=== PATIENT | female | born 1935 | race Caucasian/White ===

== ENCOUNTER 2023-02-23 14:20 | Observation (INO) | payer MEDICARE ==
[2023-02-23] MEDS ORDERED: Zofran 4 MG/2 ML VIAL IV ONE (14:40)
[2023-02-23] MEDS ORDERED: Sodium Chloride 0.9% 1000 ML 1,000 ML IV STA (14:40)
[2023-02-23] MEDS ORDERED: Sodium Chloride 0.9% 1000 ML 1,000 ML ONE (14:46)
[2023-02-23] MEDS ORDERED: Zofran 4 MG/2 ML VIAL ONE (14:46)
[2023-02-23 14:54] LABS: Absolute Neutrophil Ct (ANC) 2.64 x10^3/uL (1.4-6.9); BASOPHIL % 0.2 % (0.0-0.4); Basophil (Absolute #) 0.01 x10^3/uL (0-0.4); Eosinophil (Absolute #) 0 x10^3/uL (0-0.5); Hematocrit 40.6 % (35-47); Hemoglobin 14.7 g/dL (12.0-16.0); IMMATURE GRAN # 0.02 x10^3u/L (0.00-0.03); IMMATURE GRAN % 0.4 % (0.00-0.4); Lymphocyte (Absolute #) 1.34 x10^3/uL (1.0-4.6); Mean Cell Volume 84.8 fL (78-100); Mean Corpuscular Hemoglobin 30.7 pg (26-32); Mean Corpuscular Hgb Concent. 36.2 g/dL (32-36); Mean Platelet Volume 9.2 fL (7.5-11.0); Monocyte (Absolute #) 0.45 x10^3/uL (0.0-1.3); Monocytes % 10.1 % (0.0-12.0); Neutrophil % 59.3 % (36.0-66.0); Platelet Count 268 x10^3/uL (150-450); Red Blood Count 4.79 x10^6/uL (4.1-5.4); Red Cell Distribution Width 11.2 % (11.5-14.0); White Blood Count 4.5 x10^3/uL (4.0-10.5)
[2023-02-23 15:08] LABS: ALBUMIN 4.6 g/dL (3.5-5.0); ALKALINE PHOSPHATASE 91 U/L (38-126); AMYLASE 80 U/L (30-110); ANION GAP 17.5 MEQ/L (5-15); BLOOD UREA NITROGEN 12 mg/dL (7-17); CHLORIDE 89 mmol/L (98-107); Calcium 8.9 mg/dL (8.4-10.2); Carbon Dioxide 20 mmol/L (22-30); Creatinine 1 0.72 mg/dL (0.52-1.04); EST GLOMERULAR FILTRATION RATE > 60.0 ML/MIN; Glucose 140 mg/dL (74-106); LIPASE 123 U/L (23-300); Potassium 3.6 mmol/L (3.5-5.1); SGOT/AST 32 U/L (14-36); SGPT/ALT 23 U/L (0-35); SODIUM 123 mmol/L (137-145); Total Protein 7.8 g/dL (6.3-8.2)
--- NOTE | 2023-02-23 15:29 | XRAY ---
Indication: Nausea, vomiting, and cough. Comparison: None 2 view abdomen demonstrates nonspecific nonobstructed bowel gas pattern with minimal/mild scattered colonic fecal debris. Solid organs unremarkable. Osseous structures intact with osteopenia, mild/moderate multilevel degenerative spondylosis, and minimal double curvature thoracolumbar scoliosis. Incidental overlying monitoring leads. Single frontal chest inflated and clear. Heart not enlarged. Bony thorax intact with osteopenia and degenerative changes. Incidental overlying monitoring leads. Impression: Nonacute nonobstructed abdomen. Nonacute one view chest. Incidental chronic bony findings.
[2023-02-23 16:18] LABS: Appearance Clear (Clear); Bacteria None Seen /HPF (None Seen); Bilirubin Negative (Negative); Blood Negative (Negative); Epithelial Cells Rare /HPF (None Seen); Glucose, Urine Negative (Negative); Hyaline Casts NONE SEEN /LPF (0-2); Ketones 15 (Negative); Leukocyte Esterase Large (Negative); Nitrite Negative (Negative); Ph 6.5 (4.6-8.0); Protein,Urine Dip 30 (Negative); RBC 0-2 /HPF (0-5); WBC 51-100 /HPF (0-5)
[2023-02-23 16:20] LABS: ADD URINE CULTURE? YES (NO)
[2023-02-23] MEDS ORDERED: ROCEPHIN 1 Gm-D5w 50 ml Bag** 1 G/50 ML IVPB IV ONE (16:23)
[2023-02-23] MEDS ORDERED: ROCEPHIN 1 Gm-D5w 50 ml Bag** 1 G/50 ML IVPB IV STA (16:24)
--- NOTE | 2023-02-23 16:24 | ERPHSYRPT ---
- History of Present Illness Time Seen by Provider: 02/23/23 14:30 Patient Subjective Stated Complaint: C/O nausea today. Patient states she has been fighting off an illness for about a week. Denies any pain. States one epi sode of diarrhea this am with some "dry heaving". Denies any fever for the past several days but states she had one last week when the illness started. Triage Nursing Assessment: Patient brought back to ER in W/C. She was able to transfer self from chair to bed. She is alert and oriented. Hard of hearing. No active vomiting during assessment. JEFRY CUBA. Physician History: Patient is an 87-year-old white female who presents to the emergency room after being ill for a week. She suspected she might have COVID but did not do a home test. She complains of chills nausea vomiting cough she has been sick for a week she has had some dry heaves she has had some diarrhea. Timing/Duration: week(s) (1) Severity: severe Modifying Factors: Improves With: nothing Associated Symptoms: nausea, cough, loss of appetite, weakness Allergies/Adverse Reactions: No Known Drug Allergies Allergy (Verified 02/23/23 14:28) Home Medications: Amlodipine Besylate [Norvasc] 1 tab PO DAILY 02/23/23 [History] Hydrochlorothiazide 25 mg [hydroDIURIL 25 MG] 1 tab PO DAILY 02/23/23 [History] Potassium Chloride [Klor-Con M20] 1 tab PO BID 02/23/23 [History] Hx Tetanus, Diphtheria Vaccination/Date Given: Yes Hx Influenza Vaccination/Date Given: Yes Hx Pneumococcal Vaccination/Date Given: Yes Immunizations Up to Date: Yes Travel Risk - International Travel Have you traveled outside of the country in past 3 weeks: No - Coronavirus Screening Are you exhibiting any of the following symptoms?: Yes Symptoms: Fever, Vomiting/Diarrhea - Vaccine Status Have you recieved a Covid-19 vaccination: Yes Facility Supervisor: [employer] - Vaccination Dates Date of 2cond Vaccination (if applicable): ? - Review of Systems Constitutional: Weakness, No Fever, No Chills Eyes: No Symptoms Ears, Nose, & Throat: No Symptoms Respiratory: No Cough, No Dyspnea Cardiac: No Chest Pain, No Edema, No Syncope Abdominal/Gastrointestinal: Nausea, Vomiting, Diarrhea, No Abdominal Pain Genitourinary Symptoms: No Dysuria Musculoskeletal: No Back Pain, No Neck Pain Skin: No Rash Neurological: No Dizziness, No Focal Weakness, No Sensory Changes Psychological: No Symptoms Endocrine: No Symptoms All Other Systems: Reviewed and Negative - Past Medical History Pertinent Past Medical History: Yes Cardiac History: Hypertension - Past Surgical History Past Surgical History: Yes Female Surgical History: Hysterectomy - Social History Smoking Status: Never smoker Exposure to second hand smoke: No Drug Use: none - Nursing Vital Signs Nursing Vital Signs: Initial Vital Signs Temperature 97.7 F 02/23/23 14:21 Pulse Rate 93 H 02/23/23 14:21 Respiratory Rate 15 02/23/23 14:21 Blood Pressure 171/84 02/23/23 14:21 O2 Sat by Pulse Oximetry 97 02/23/23 14:21 Pain Scale Pain Intensity 0 - Physical Exam General Appearance: moderate distress, alert Eye Exam: PERRL/EOMI, eyes nml inspection Ears, Nose, Throat Exam: normal ENT inspection, TMs normal, pharynx normal, moist mucous membranes Neck Exam: normal inspection, non-tender, supple, full range of motion Respiratory Exam: normal breath sounds, lungs clear, No respiratory distress Cardiovascular Exam: regular rate/rhythm, normal heart sounds, normal peripheral pulses Gastrointestinal/Abdomen Exam: soft, normal bowel sounds, No tenderness, No mass Back Exam: normal inspection, normal range of motion, No CVA tenderness, No vertebral tenderness Extremity Exam: normal inspection, normal range of motion, pelvis stable Neurologic Exam: alert, oriented x 3, cooperative, normal mood/affect, nml ce rebellar function, nml station & gait, sensation nml, No motor deficits Skin Exam: normal color, warm, dry, No rash Lymphatic Exam: No adenopathy SpO2 Interpretation: normal SpO2: 98 O2 Delivery: Room Air - Course Nursing assessment & vital signs reviewed: Yes EKG Interpreted by Me: RATE (88), Sinus Rhythm, NORMAL AXIS, LAFB, Right Bundle Branch Block, NORMAL ST-T - Radiology Exams Chest X-ray Interpretation: Reviewed by me, Negative Abdomen X-ray Interpretation: Reviewed by me, Negative Ordered Tests: Active Orders 24 hr Category Date Time Status EKG-ER Only STAT Care 02/23/23 14:40 Active IV Insertion STAT Care 02/23/23 14:40 Active OBSTR/ACUTE ABDOMEN SERIES Stat Exams 02/23/23 14:41 Completed AMYLASE Stat Lab 02/23/23 14:45 Completed BLOOD CULTURE Stat Lab 02/23/23 15:35 Received CBC W DIFF Stat Lab 02/23/23 14:45 Completed CMP Stat Lab 02/23/23 14:45 Completed CULTURE,URINE Stat Lab 02/23/23 16:00 Received LIPASE Stat Lab 02/23/23 14:45 Completed Lactic Acid Stat Lab 02/23/23 14:40 Completed TROPONIN Q4H Lab 02/23/23 14:45 Completed TROPONIN Q4H Lab 02/23/23 18:45 Ordered TROPONIN Q4H Lab 02/23/23 22:45 Ordered UA W/RFX UR CULTURE Stat Lab 02/23/23 16:00 Completed Medication Summary Discontinued Medications Generic Name Dose Route Start Last Admin Trade Name Freq PRN Reason Stop Dose Admin Droperidol 1.25 mg 02/23/23 16:03 02/23/23 16:06 Droperidol 5 Mg/2 Ml Vial IV 02/23/23 16:04 1.25 mg STAT ONE Administration Droperidol Confirm 02/23/23 16:05 Droperidol 5 Mg/2 Ml Vial Administered 02/23/23 16:06 Dose 5 mg .ROUTE .STK-MED ONE Sodium Chloride 1,000 mls @ 999 mls/hr 02/23/23 14:40 02/23/23 15:56 Sodium Chloride 0.9% 1000 Ml IV 02/23/23 15:40 Infused .Q1H1M STA Infusion Sodium Chloride Confirm 02/23/23 14:46 Sodium Chloride 0.9% 1000 Ml Administered 02/23/23 14:47 Dose 1,000 mls @ ud .ROUTE .STK-MED ONE Ceftriaxone Sodium/Dextrose Confirm 02/23/23 16:23 Rocephin 1 Gm-D5w 50 Ml Bag Administered 02/23/23 16:24 Dose 1 g in 50 mls @ ud IV .STK-MED ONE Ceftriaxone Sodium/Dextrose 1 g in 50 mls @ 100 mls/hr 02/23/23 16:24 16:56 Rocephin 1 Gm-D5w 50 Ml Bag IV 02/23/23 16:53 Infused STAT STA Infusion Ondansetron HCl 4 mg 02/23/23 14:40 02/23/23 14:47 Ondansetron Hcl 4 Mg/2 Ml Vial IV 02/23/23 14:41 4 mg STAT ONE Administration Ondansetron HCl Confirm 02/23/23 14:46 Ondansetron Hcl 4 Mg/2 Ml Vial Administered 02/23/23 14:47 Dose 4 mg .ROUTE .[facility]-MED ONE Lab/Rad Data: Laboratory Result Diagrams 02/23/23 14:45 02/23/23 14:45 Laboratory Results 02/23/23 02/23/23 02/23/23 Range/Units 16:00 15:35 14:45 WBC (4.0-10.5) x10^3/uL RBC (4.1-5.4) x10^6/uL Hgb (12.0-16.0) g/dL Hct (35-47) % MCV (78-100) fL MCH (26-32) pg MCHC (32-36) g/dL RDW (11.5-14.0) % Plt Count (150-450) x10^3/uL MPV (7.5-11.0) fL Gran % (36.0-66.0) % Immature Gran % (Auto) (0.00-0.4) % Nucleat RBC Rel Count (0.00-0.1) % Eos # (Auto) (0-0.5) x10^3/uL Immature Gran # (Auto) (0.00-0.03) x10^3u/L Absolute Lymphs (auto) (1.0-4.6) x10^3/uL Absolute Monos (auto) (0.0-1.3) x10^3/uL Absolute Nucleated RBC (0.00-0.01) x10^3u/L Lymphocytes % (24.0-44.0) % Monocytes % (0.0-12.0) % Eosinophils % (0.00-5.0) % Basophils % (0.0-0.4) % Absolute Granulocytes (1.4-6.9) x10^3/uL Basophils # (0-0.4) x10^3/uL Sodium (137-145) mmol/L Potassium (3.5-5.1) mmol/L Chloride (98-107) mmol/L Carbon Dioxide (22-30) mmol/L Anion Gap (5-15) MEQ/L BUN (7-17) mg/dL Creatinine (0.52-1.04) mg/dL Estimated GFR ML/MIN Glucose (74-106) mg/dL Lactic Acid (0.4-2.0) Calcium (8.4-10.2) mg/dL Total Bilirubin (0.2-1.3) mg/dL AST (14-36) U/L ALT (0-35) U/L Alkaline Phosphatase (38-126) U/L Troponin I < 0.012 (0.000-0.034) ng/mL Serum Total Protein (6.3-8.2) g/dL Albumin (3.5-5.0) g/dL Amylase (30-110) U/L Lipase (23-300) U/L Urine Color Yellow (Yellow) Urine Appearance Clear (Clear) Urine pH 6.5 (4.6-8.0) Ur Specific [place] 1.010 (1.005-1.030) Urine Protein 30 (Negative) Urine Glucose (UA) Negative (Negative) mg/dL Urine Ketones 15 A (Negative) Urine Blood Negative (Negative) Urine Nitrite Negative (Negative) Urine Bilirubin Negative (Negative) Urine Urobilinogen 1.0 A (0.2) mg/dL Ur Leukocyte Esterase Large A (Negative) U Hyaline Cast (Auto) NONE SEEN (0-2) /LPF Urine Microscopic RBC 0-2 (0-5) /HPF Urine Microscopic WBC 51-100 A (0-5) /HPF Ur Epithelial Cells Rare (None Seen) /HPF Urine Bacteria None Seen (None Seen) /HPF Urine Culture Reflexed YES (NO) Influenza Type A Ag NEGATIVE (NEGATIVE) Influenza Type B Ag NEGATIVE (NEGATIVE) RSV (PCR) NEGATIVE (NEGATIVE) SARS-CoV-2 (PCR) POSITIVE A (NEGATIVE) 02/23/23 02/23/23 02/23/23 Range/Units 14:45 14:45 14:40 WBC 4.5 (4.0-10.5) x10^3/uL RBC 4.79 (4.1-5.4) x10^6/uL Hgb 14.7 (12.0-16.0) g/dL Hct 40.6 (35-47) % MCV 84.8 (78-100) fL MCH 30.7 (26-32) pg MCHC 36.2 H (32-36) g/dL RDW 11.2 L (11.5-14.0) % Plt Count 268 (150-450) x10^3/uL MPV 9.2 (7.5-11.0) fL Gran % 59.3 (36.0-66.0) % Immature Gran % (Auto) 0.4 (0.00-0.4) % Nucleat RBC Rel Count 0.0 (0.00-0.1) % Eos # (Auto) 0 (0-0.5) x10^3/uL Immature Gran # (Auto) 0.02 (0.00-0.03) x10^3u/L Absolute Lymphs (auto) 1.34 (1.0-4.6) x10^3/uL Absolute Monos (auto) 0.45 (0.0-1.3) x10^3/uL Absolute Nucleated RBC 0.00 (0.00-0.01) x10^3u/L Lymphocytes % 30.0 (24.0-44.0) % Monocytes % 10.1 (0.0-12.0) % Eosinophils % 0.0 (0.00-5.0) % Basophils % 0.2 (0.0-0.4) % Absolute Granulocytes 2.64 (1.4-6.9) x10^3/uL Basophils # 0.01 (0-0.4) x10^3/uL Sodium 123 L (137-145) mmol/L Potassium 3.6 (3.5-5.1) mmol/L Chloride 89 L (98-107) mmol/L Carbon Dioxide 20 L (22-30) mmol/L Anion Gap 17.5 H (5-15) MEQ/L BUN 12 (7-17) mg/dL Creatinine 0.72 (0.52-1.04) mg/dL Estimated GFR > 60.0 ML/MIN Glucose 140 H (74-106) mg/dL Lactic Acid 1.6 (0.4-2.0) Calcium 8.9 (8.4-10.2) mg/dL Total Bilirubin 0.70 (0.2-1.3) mg/dL AST 32 (14-36) U/L ALT 23 (0-35) U/L Alkaline Phosphatase 91 (38-126) U/L Troponin I (0.000-0.034) ng/mL Serum Total Protein 7.8 (6.3-8.2) g/dL Albumin 4.6 (3.5-5.0) g/dL Amylase 80 (30-110) U/L Lipase 123 (23-300) U/L Urine Color (Yellow) Urine Appearance (Clear) Urine pH (4.6-8.0) Ur Specific [place] (1.005-1.030) Urine Protein (Negative) Urine Glucose (UA) (Negative) mg/dL Urine Ketones (Negative) Urine Blood (Negative) Urine Nitrite (Negative) Urine Bilirubin (Negative) Urine Urobilinogen (0.2) mg/dL Ur Leukocyte Esterase (Negative) U Hyaline Cast (Auto) (0-2) /LPF Urine Microscopic RBC (0-5) /HPF Urine Microscopic WBC (0-5) /HPF Ur Epithelial Cells (None Seen) /HPF Urine Bacteria (None Seen) /HPF Urine Culture Reflexed (NO) Influenza Type A Ag (NEGATIVE) Influenza Type B Ag (NEGATIVE) RSV (PCR) (NEGATIVE) SARS-CoV-2 (PCR) (NEGATIVE) - Progress Progress: unchanged Medical Desision Making - Independent Historian Additional History obtained from: Child - Discussion of managment Care discussed with:: on-call "doc" Reviewed:: Test results Agreed on:: Treatment plan, decision to admit Will see patient: in hospital - Diagnostic Testing Diagnostic test were ordered, analyzed, and reviewed by me: Yes Radiological Interpretation: Reviewed by me - Risk of complications The pt has a mod risk of morbidity or mortality based on: Need for prescription drug management - Departure Departure Disposition: Observation (Patient admitted to the hospitalist service Dr. Locke) Clinical Impression: COVID, Hyponatremia, Urinary tract infection Condition: Serious Critical Care Time: No Referrals: JERRY OBRIEN [Primary Care Provider] - Follow up/PCP as directed
[2023-02-23 16:25] LABS: INFLUENZA A NEGATIVE (NEGATIVE); INFLUENZA B NEGATIVE (NEGATIVE); RESPIRATORY SYNCTIAL VIRUS NEGATIVE (NEGATIVE)
[2023-02-23 16:29] LABS: SARS-CoV-2 Xpert Express POSITIVE (NEGATIVE)
--- NOTE | 2023-02-23 18:14 | PCM.HP ---
History of Present Illness - Chief Complaint Date: 02/23/23 History of Present Illness: is a 87 year old female with a pmhx of HTN presenting with c/o fatigue, diarrhea (x 1 episode) and nausea. Patient reports that for about a week now she has been sick with flu-like symptoms including chills, nausea, vomiting, and dry cough. She denies any sick contacts but states she thought she had COVID based off her symptoms. In ER her vitals were mostly unremarkable with the exception of mild hypertension. She is at her baseline of RA with spo2 @ 98%. CT of the abdomen findings: Nonacute nonobstructed abdomen. Nonacute one view chest.Incidental chronic bony findings. Laboratory findings remarkable for sodium level of 123, chloride at 89, carbon dioxide at 20, Gap 17.5, u/a suspicious for infection, and positive COVID. In ER patient received a fluid bolus, ceftriaxone, zofran, and droperidol. - Review of Systems Constitutional: Fatigue, Weakness Eyes: No Symptoms Ears, Nose, & Throat: No Symptoms Respiratory: Cough, Short Of Breath Cardiac: No Symptoms Abdominal/Gastrointestinal: Nausea, Vomiting, Diarrhea Genitourinary Symptoms: No Symptoms Musculoskeletal: No Symptoms Skin: No Symptoms Neurological: No Symptoms Psychological: No Symptoms Medications & Allergies Home Medications: Home Medication List Amlodipine Besylate [Norvasc] 1 tab PO DAILY 02/23/23 [History Confirmed 02/23/23] Hydrochlorothiazide 25 mg [hydroDIURIL 25 MG] 1 tab PO DAILY 02/23/23 [History Confirmed 02/23/23] Potassium Chloride [Klor-Con M20] 1 tab PO BID 02/23/23 [History Confirmed 02/23/23] Allergies/Adverse Reactions: Allergies Allergy/AdvReac Type Severity Reaction Status Date / Time No Known Drug Allergies Allergy Verified 02/23/23 14:28 - Past Medical History Past Medical History: Yes Cardiac History: Hypertension - Past Surgical History Past Surgical History: Yes Female Surgical History: Hysterectomy - Social History Smoking Status: Never smoker Exposure to second hand smoke: No Alcohol: None Drug Use: none - Physical Exam Vital Signs: Vital Signs - 24 hr Temp Pulse Resp BP BP Pulse Ox 02/23/23 17:23 98 02/23/23 17:00 99 H 13 150/85 02/23/23 16:30 94 H 19 151/82 94 L 02/23/23 16:01 99 H 18 159/80 98 02/23/23 16:00 89 19 159/80 96 02/23/23 15:53 97.8 F 02/23/23 15:30 148/77 02/23/23 15:00 88 15 151/72 95 02/23/23 14:29 90 18 171/84 02/23/23 14:21 97.7 F 93 H 15 171/84 97 General Appearance: no apparent distress Neurologic Exam: alert, oriented x 3, cooperative Eye Exam: PERRL/EOMI Respiratory Exam: normal breath sounds, lungs clear Cardiovascular Exam: regular rate/rhythm, normal heart sounds Gastrointestinal/Abdomen Exam: soft, normal bowel sounds Pelvic Exam: not done Rectal Exam: not done Extremity Exam: normal inspection Skin Exam: pale Results - Labs Lab/Micro Results: Lab Results-Last 24 Hours 02/23/23 02/23/23 02/23/23 Range/Units 14:40 14:45 14:45 WBC 4.5 (4.0-10.5) x10^3/uL RBC 4.79 (4.1-5.4) x10^6/uL Hgb 14.7 (12.0-16.0) g/dL Hct 40.6 (35-47) % MCV 84.8 (78-100) fL MCH 30.7 (26-32) pg MCHC 36.2 H (32-36) g/dL RDW 11.2 L (11.5-14.0) % Plt Count 268 (150-450) x10^3/uL MPV 9.2 (7.5-11.0) fL Gran % 59.3 (36.0-66.0) % Immature Gran % (Auto) 0.4 (0.00-0.4) % Nucleat RBC Rel Count 0.0 (0.00-0.1) % Eos # (Auto) 0 (0-0.5) x10^3/uL Immature Gran # (Auto) 0.02 (0.00-0.03) x10^3u/L Absolute Lymphs (auto) 1.34 (1.0-4.6) x10^3/uL Absolute Monos (auto) 0.45 (0.0-1.3) x10^3/uL Absolute Nucleated RBC 0.00 (0.00-0.01) x10^3u/L Lymphocytes % 30.0 (24.0-44.0) % Monocytes % 10.1 (0.0-12.0) % Eosinophils % 0.0 (0.00-5.0) % Basophils % 0.2 (0.0-0.4) % Absolute Granulocytes 2.64 (1.4-6.9) x10^3/uL Basophils # 0.01 (0-0.4) x10^3/uL Sodium 123 L (137-145) mmol/L Potassium 3.6 (3.5-5.1) mmol/L Chloride 89 L (98-107) mmol/L Carbon Dioxide 20 L (22-30) mmol/L Anion Gap 17.5 H (5-15) MEQ/L BUN 12 (7-17) mg/dL Creatinine 0.72 (0.52-1.04) mg/dL Estimated GFR > 60.0 ML/MIN Glucose 140 H (74-106) mg/dL Lactic Acid 1.6 (0.4-2.0) Calcium 8.9 (8.4-10.2) mg/dL Total Bilirubin 0.70 (0.2-1.3) mg/dL AST 32 (14-36) U/L ALT 23 (0-35) U/L Alkaline Phosphatase 91 (38-126) U/L Troponin I (0.000-0.034) ng/mL Serum Total Protein 7.8 (6.3-8.2) g/dL Albumin 4.6 (3.5-5.0) g/dL Amylase 80 (30-110) U/L Lipase 123 (23-300) U/L Urine Color (Yellow) Urine Appearance (Clear) Urine pH (4.6-8.0) Ur Specific [place] (1.005-1.030) Urine Protein (Negative) Urine Glucose (UA) (Negative) mg/dL Urine Ketones (Negative) Urine Blood (Negative) Urine Nitrite (Negative) Urine Bilirubin (Negative) Urine Urobilinogen (0.2) mg/dL Ur Leukocyte Esterase (Negative) U Hyaline Cast (Auto) (0-2) /LPF Urine Microscopic RBC (0-5) /HPF Urine Microscopic WBC (0-5) /HPF Ur Epithelial Cells (None Seen) /HPF Urine Bacteria (None Seen) /HPF Urine Culture Reflexed (NO) Influenza Type A Ag (NEGATIVE) Influenza Type B Ag (NEGATIVE) RSV (PCR) (NEGATIVE) SARS-CoV-2 (PCR) (NEGATIVE) 02/23/23 02/23/23 02/23/23 Range/Units 14:45 15:35 16:00 WBC (4.0-10.5) x10^3/uL RBC (4.1-5.4) x10^6/uL Hgb (12.0-16.0) g/dL Hct (35-47) % MCV (78-100) fL MCH (26-32) pg MCHC (32-36) g/dL RDW (11.5-14.0) % Plt Count (150-450) x10^3/uL MPV (7.5-11.0) fL Gran % (36.0-66.0) % Immature Gran % (Auto) (0.00-0.4) % Nucleat RBC Rel Count (0.00-0.1) % Eos # (Auto) (0-0.5) x10^3/uL Immature Gran # (Auto) (0.00-0.03) x10^3u/L Absolute Lymphs (auto) (1.0-4.6) x10^3/uL Absolute Monos (auto) (0.0-1.3) x10^3/uL Absolute Nucleated RBC (0.00-0.01) x10^3u/L Lymphocytes % (24.0-44.0) % Monocytes % (0.0-12.0) % Eosinophils % (0.00-5.0) % Basophils % (0.0-0.4) % Absolute Granulocytes (1.4-6.9) x10^3/uL Basophils # (0-0.4) x10^3/uL Sodium (137-145) mmol/L Potassium (3.5-5.1) mmol/L Chloride (98-107) mmol/L Carbon Dioxide (22-30) mmol/L Anion Gap (5-15) MEQ/L BUN (7-17) mg/dL Creatinine (0.52-1.04) mg/dL Estimated GFR ML/MIN Glucose (74-106) mg/dL Lactic Acid (0.4-2.0) Calcium (8.4-10.2) mg/dL Total Bilirubin (0.2-1.3) mg/dL AST (14-36) U/L ALT (0-35) U/L Alkaline Phosphatase (38-126) U/L Troponin I < 0.012 (0.000-0.034) ng/mL Serum Total Protein (6.3-8.2) g/dL Albumin (3.5-5.0) g/dL Amylase (30-110) U/L Lipase (23-300) U/L Urine Color Yellow (Yellow) Urine Appearance Clear (Clear) Urine pH 6.5 (4.6-8.0) Ur Specific [place] 1.010 (1.005-1.030) Urine Protein 30 (Negative) Urine Glucose (UA) Negative (Negative) mg/dL Urine Ketones 15 A (Negative) Urine Blood Negative (Negative) Urine Nitrite Negative (Negative) Urine Bilirubin Negative (Negative) Urine Urobilinogen 1.0 A (0.2) mg/dL Ur Leukocyte Esterase Large A (Negative) U Hyaline Cast (Auto) NONE SEEN (0-2) /LPF Urine Microscopic RBC 0-2 (0-5) /HPF Urine Microscopic WBC 51-100 A (0-5) /HPF Ur Epithelial Cells Rare (None Seen) /HPF Urine Bacteria None Seen (None Seen) /HPF Urine Culture Reflexed YES (NO) Influenza Type A Ag NEGATIVE (NEGATIVE) Influenza Type B Ag NEGATIVE (NEGATIVE) RSV (PCR) NEGATIVE (NEGATIVE) SARS-CoV-2 (PCR) POSITIVE A (NEGATIVE) - Radiology Impressions Radiology Exams & Impressions: Radiology Procedures Category Date Time Status OBSTR/ACUTE ABDOMEN SERIES Stat Exams 02/23/23 14:41 Completed Assessment/Plan (1) COVID Current Visit: Yes Status: Acute Assessment & Plan: -Continue to monitor, passed the window for paxlovid/remdesivir -CXR pending -Isolation -Supplemental oxygen as need for goal of >92% Code(s): U07.1 - COVID-19 (2) Hyponatremia Current Visit: Yes Status: Acute Assessment & Plan: -Most likely due to hypovolemia/use of hctz -Continue NS@100ml/hr -BMP q4h -TSH, lipid panel -Tele -Hold HCTZ Code(s): E87.1 - HYPO-OSMOLALITY AND HYPONATREMIA (3) Urinary tract infection Current Visit: Yes Status: Acute Assessment & Plan: -Rocephin empirically, follow culture Code(s): N39.0 - URINARY TRACT INFECTION, SITE NOT SPECIFIED (4) Hypertension Current Visit: Yes Status: Acute Assessment & Plan: -stable, will continue to monitor for now, resume amlodipine VTE: lovenox surrogate decision makers: Radha Srivastava [phone] Ghanshyam Srivastava [phone] Dispo: possible D/C tomorrow Code(s): I10 - ESSENTIAL (PRIMARY) HYPERTENSION
[2023-02-23] MEDS ORDERED: TYLENOL 325 MG PO PRN (18:21)
[2023-02-23] MEDS: Sodium Chloride 0.9% 1000 ML 1,000 ML IV SCH (18:29)
[2023-02-23] MEDS: Zofran 4 MG/2 ML VIAL IV PRN (20:17)
[2023-02-23] MEDS ORDERED: Klor Con PO ONE (21:41)
[2023-02-23] MEDS: Klor Con PO SCH (21:53)
[2023-02-23] MEDS ORDERED: NON-FORMULARY ITEM (Potassium Chloride [Klor-Con M20] 20 MEQ Tab.Er.Prt) PO SCH (22:00)
[2023-02-23 23:31] LABS: ANION GAP 15.8 MEQ/L (5-15); BLOOD UREA NITROGEN 9 mg/dL (7-17); CHLORIDE 93 mmol/L (98-107); Calcium 8.5 mg/dL (8.4-10.2); Carbon Dioxide 21 mmol/L (22-30); Cholesterol 178 mg/dL (50-200); Creatinine 1 0.72 mg/dL (0.52-1.04); EST GLOMERULAR FILTRATION RATE > 60.0 ML/MIN; Glucose 109 mg/dL (74-106); HDL CHOLESTEROL 36 mg/dL (40-60); LDL, DIRECT 119 mg/dL (30-100); Potassium 4.1 mmol/L (3.5-5.1); Risk Ratio 4.9; SODIUM 126 mmol/L (137-145); TRIGLYCERIDE 103 mg/dL (30-150); TSH, 3RD Generation 0.724 mIU/L (0.47-4.68)
[2023-02-24 00:05] LABS: ANION GAP 13.1 MEQ/L (5-15); BLOOD UREA NITROGEN 8 mg/dL (7-17); CHLORIDE 95 mmol/L (98-107); Calcium 8.3 mg/dL (8.4-10.2); Carbon Dioxide 22 mmol/L (22-30); EST GLOMERULAR FILTRATION RATE > 60.0 ML/MIN; Glucose 114 mg/dL (74-106); SODIUM 127 mmol/L (137-145)
[2023-02-24] MEDS: Sodium Chloride 0.9% 1000 ML 1,000 ML IV SCH ×3 (03:22→22:01)
[2023-02-24 05:06] LABS: Absolute Neutrophil Ct (ANC) 1.97 x10^3/uL (1.4-6.9); Basophil (Absolute #) 0 x10^3/uL (0-0.4); Eosinophil % 0.2 % (0.00-5.0); Eosinophil (Absolute #) 0.01 x10^3/uL (0-0.5); Hematocrit 35.6 % (35-47); Hemoglobin 12.3 g/dL (12.0-16.0); IMMATURE GRAN # 0.01 x10^3u/L (0.00-0.03); IMMATURE GRAN % 0.2 % (0.00-0.4); Lymphocyte (Absolute #) 1.89 x10^3/uL (1.0-4.6); Lymphocytes % 42.5 % (24.0-44.0); Mean Cell Volume 86.8 fL (78-100); Mean Corpuscular Hgb Concent. 34.6 g/dL (32-36); Mean Platelet Volume 9.5 fL (7.5-11.0); Monocyte (Absolute #) 0.57 x10^3/uL (0.0-1.3); Monocytes % 12.8 % (0.0-12.0); Neutrophil % 44.3 % (36.0-66.0); Platelet Count 227 x10^3/uL (150-450); Red Cell Distribution Width 11.5 % (11.5-14.0); White Blood Count 4.5 x10^3/uL (4.0-10.5)
[2023-02-24 05:22] LABS: ALBUMIN 3.5 g/dL (3.5-5.0); ALKALINE PHOSPHATASE 64 U/L (38-126); ANION GAP 13.9 MEQ/L (5-15); BLOOD UREA NITROGEN 7 mg/dL (7-17); CHLORIDE 97 mmol/L (98-107); Calcium 8.2 mg/dL (8.4-10.2); Carbon Dioxide 21 mmol/L (22-30); Creatinine 1 0.74 mg/dL (0.52-1.04); EST GLOMERULAR FILTRATION RATE > 60.0 ML/MIN; Glucose 110 mg/dL (74-106); Potassium 3.6 mmol/L (3.5-5.1); SGOT/AST 30 U/L (14-36); SGPT/ALT 19 U/L (0-35); SODIUM 128 mmol/L (137-145); Total Protein 6.1 g/dL (6.3-8.2)
[2023-02-24] MEDS: Klor Con PO SCH ×2 (08:50→21:35)
[2023-02-24] MEDS: NORVASC 5 MG PO SCH (08:51)
[2023-02-24] MEDS: Zofran 4 MG/2 ML VIAL IV PRN ×3 (08:53→22:18)
[2023-02-24] MEDS ORDERED: NON-FORMULARY ITEM (Amlodipine Besylate [Norvasc] 10 MG Tablet) PO SCH (10:00)
[2023-02-24] MEDS ORDERED: ROCEPHIN 1 Gm-D5w 50 ml Bag** 1 G/50 ML IVPB IV SCH (10:00)
[2023-02-24] MEDS ORDERED: ENOXAPARIN SODIUM SQ SCH (10:00)
--- NOTE | 2023-02-24 13:27 | PCM.NOTE ---
Date and Time: 02/24/23 1322 Subjective Assessment: is a 87 year old female with a pmhx of HTN presenting with c/o fatigue, diarrhea (x 1 episode) and nausea admitted for COVID, hyponatremia, and UTI currently being treated with rocephin pending cultures and IVF. She is at her baseline of RA with spo2 @ 98%. CT of the abdomen findings: Nonacute nonobstructed abdomen. Nonacute one view chest.Incidental chronic bony findings. Laboratory findings remarkable for sodium level of 123, chloride at 89, carbon dioxide at 20, Gap 17.5, u/a suspicious for infection, and positive COVID. Patient endorses improvement of symptoms overnight. Denies nausea and diarrhea. Remains afebrile. Sodium levels have improved to 128 today. Discussed the possibility of discharge vs observation for one more night. She would need to follow a 2L fluid restriction on discharge. Her previous PCP has retired, but she is to follow with Dr. Woodruff. Urine culture is showing no growth to date, but will continue to follow. - Review of Systems Constitutional: Fatigue, Weakness Eyes: No Symptoms Ears, Nose, & Throat: No Symptoms Respiratory: Cough, Short Of Breath Cardiac: No Symptoms Abdominal/Gastrointestinal: No Symptoms Genitourinary Symptoms: No Symptoms Musculoskeletal: No Symptoms Skin: No Symptoms Neurological: No Symptoms Objective Exam General Appearance: no apparent distress Neurologic Exam: alert, oriented x 3, cooperative Skin Exam: pale Eye Exam: PERRL Respiratory Exam: normal breath sounds Cardiovascular Exam: regular rate/rhythm, normal heart sounds Gastrointestinal/Abdomen Exam: soft, normal bowel sounds OBJECTIVE DATA Vital Signs: Vital Signs - 24 hr Temp Pulse Resp BP BP Pulse Ox 02/24/23 11:59 97.7 F 60 16 145/69 90 L 02/24/23 10:00 16 02/24/23 09:00 97.6 F 77 16 128/59 96 02/24/23 06:00 18 02/24/23 05:00 97.9 F 82 18 148/77 97 02/24/23 02:00 18 02/24/23 01:00 97.8 F 52 L 18 147/83 96 02/23/23 22:45 18 02/23/23 21:18 98.1 F 96 H 18 141/66 96 02/23/23 18:54 18 02/23/23 17:40 98.1 F 99 H 18 149/77 92 L 02/23/23 17:23 98 02/23/23 17:00 99 H 13 150/85 02/23/23 16:30 94 H 19 151/82 94 L 02/23/23 16:01 99 H 18 159/80 98 02/23/23 16:00 89 19 159/80 96 02/23/23 15:53 97.8 F 02/23/23 15:30 148/77 02/23/23 15:00 88 15 151/72 95 02/23/23 14:29 90 18 171/84 02/23/23 14:21 97.7 F 93 H 15 171/84 97 Pain Assessment - Last Documented Pain Intensity 0 Pain Scale Used 0-10 Pain Scale Intake and Output: Intake & Output 02/22/23 02/23/23 02/24/23 02/25/23 11:59 11:59 11:59 11:59 Intake Total 1706 Output Total 1100 Balance 606 Weight 69 kg Lab Results: Lab Results-Last 24 Hours 02/23/23 02/23/23 02/23/23 Range/Units 14:40 14:45 14:45 WBC 4.5 (4.0-10.5) x10^3/uL RBC 4.79 (4.1-5.4) x10^6/uL Hgb 14.7 (12.0-16.0) g/dL Hct 40.6 (35-47) % MCV 84.8 (78-100) fL MCH 30.7 (26-32) pg MCHC 36.2 H (32-36) g/dL RDW 11.2 L (11.5-14.0) % Plt Count 268 (150-450) x10^3/uL MPV 9.2 (7.5-11.0) fL Gran % 59.3 (36.0-66.0) % Immature Gran % (Auto) 0.4 (0.00-0.4) % Nucleat RBC Rel Count 0.0 (0.00-0.1) % Eos # (Auto) 0 (0-0.5) x10^3/uL Immature Gran # (Auto) 0.02 (0.00-0.03) x10^3u/L Absolute Lymphs (auto) 1.34 (1.0-4.6) x10^3/uL Absolute Monos (auto) 0.45 (0.0-1.3) x10^3/uL Absolute Nucleated RBC 0.00 (0.00-0.01) x10^3u/L Lymphocytes % 30.0 (24.0-44.0) % Monocytes % 10.1 (0.0-12.0) % Eosinophils % 0.0 (0.00-5.0) % Basophils % 0.2 (0.0-0.4) % Absolute Granulocytes 2.64 (1.4-6.9) x10^3/uL Basophils # 0.01 (0-0.4) x10^3/uL Sodium 123 L (137-145) mmol/L Potassium 3.6 (3.5-5.1) mmol/L Chloride 89 L (98-107) mmol/L Carbon Dioxide 20 L (22-30) mmol/L Anion Gap 17.5 H (5-15) MEQ/L BUN 12 (7-17) mg/dL Creatinine 0.72 (0.52-1.04) mg/dL Estimated GFR > 60.0 ML/MIN Glucose 140 H (74-106) mg/dL Lactic Acid 1.6 (0.4-2.0) Calcium 8.9 (8.4-10.2) mg/dL Total Bilirubin 0.70 (0.2-1.3) mg/dL AST 32 (14-36) U/L ALT 23 (0-35) U/L Alkaline Phosphatase 91 (38-126) U/L Troponin I (0.000-0.034) ng/mL Serum Total Protein 7.8 (6.3-8.2) g/dL Albumin 4.6 (3.5-5.0) g/dL Triglycerides (30-150) mg/dL Cholesterol (50-200) mg/dL LDL Cholesterol (30-100) mg/dL HDL Cholesterol (40-60) mg/dL Heart Disease Risk Ratio Amylase 80 (30-110) U/L Lipase 123 (23-300) U/L TSH 3rd Generation (0.47-4.68) mIU/L Urine Color (Yellow) Urine Appearance (Clear) Urine pH (4.6-8.0) Ur Specific Fiatt (1.005-1.030) Urine Protein (Negative) Urine Glucose (UA) (Negative) mg/dL Urine Ketones (Negative) Urine Blood (Negative) Urine Nitrite (Negative) Urine Bilirubin (Negative) Urine Urobilinogen (0.2) mg/dL Ur Leukocyte Esterase (Negative) U Hyaline Cast (Auto) (0-2) /LPF Urine Microscopic RBC (0-5) /HPF Urine Microscopic WBC (0-5) /HPF Ur Epithelial Cells (None Seen) /HPF Urine Bacteria (None Seen) /HPF Urine Culture Reflexed (NO) Influenza Type A Ag (NEGATIVE) Influenza Type B Ag (NEGATIVE) RSV (PCR) (NEGATIVE) SARS-CoV-2 (PCR) (NEGATIVE) 02/23/23 02/23/23 02/23/23 Range/Units 14:45 15:35 16:00 WBC (4.0-10.5) x10^3/uL RBC (4.1-5.4) x10^6/uL Hgb (12.0-16.0) g/dL Hct (35-47) % MCV (78-100) fL MCH (26-32) pg MCHC (32-36) g/dL RDW (11.5-14.0) % Plt Count (150-450) x10^3/uL MPV (7.5-11.0) fL Gran % (36.0-66.0) % Immature Gran % (Auto) (0.00-0.4) % Nucleat RBC Rel Count (0.00-0.1) % Eos # (Auto) (0-0.5) x10^3/uL Immature Gran # (Auto) (0.00-0.03) x10^3u/L Absolute Lymphs (auto) (1.0-4.6) x10^3/uL Absolute Monos (auto) (0.0-1.3) x10^3/uL Absolute Nucleated RBC (0.00-0.01) x10^3u/L Lymphocytes % (24.0-44.0) % Monocytes % (0.0-12.0) % Eosinophils % (0.00-5.0) % Basophils % (0.0-0.4) % Absolute Granulocytes (1.4-6.9) x10^3/uL Basophils # (0-0.4) x10^3/uL Sodium (137-145) mmol/L Potassium (3.5-5.1) mmol/L Chloride (98-107) mmol/L Carbon Dioxide (22-30) mmol/L Anion Gap (5-15) MEQ/L BUN (7-17) mg/dL Creatinine (0.52-1.04) mg/dL Estimated GFR ML/MIN Glucose (74-106) mg/dL Lactic Acid (0.4-2.0) Calcium (8.4-10.2) mg/dL Total Bilirubin (0.2-1.3) mg/dL AST (14-36) U/L ALT (0-35) U/L Alkaline Phosphatase (38-126) U/L Troponin I < 0.012 (0.000-0.034) ng/mL Serum Total Protein (6.3-8.2) g/dL Albumin (3.5-5.0) g/dL Triglycerides (30-150) mg/dL Cholesterol (50-200) mg/dL LDL Cholesterol (30-100) mg/dL HDL Cholesterol (40-60) mg/dL Heart Disease Risk Ratio Amylase (30-110) U/L Lipase (23-300) U/L TSH 3rd Generation (0.47-4.68) mIU/L Urine Color Yellow (Yellow) Urine Appearance Clear (Clear) Urine pH 6.5 (4.6-8.0) Ur Specific Fiatt 1.010 (1.005-1.030) Urine Protein 30 (Negative) Urine Glucose (UA) Negative (Negative) mg/dL Urine Ketones 15 A (Negative) Urine Blood Negative (Negative) Urine Nitrite Negative (Negative) Urine Bilirubin Negative (Negative) Urine Urobilinogen 1.0 A (0.2) mg/dL Ur Leukocyte Esterase Large A (Negative) U Hyaline Cast (Auto) NONE SEEN (0-2) /LPF Urine Microscopic RBC 0-2 (0-5) /HPF Urine Microscopic WBC 51-100 A (0-5) /HPF Ur Epithelial Cells Rare (None Seen) /HPF Urine Bacteria None Seen (None Seen) /HPF Urine Culture Reflexed YES (NO) Influenza Type A Ag NEGATIVE (NEGATIVE) Influenza Type B Ag NEGATIVE (NEGATIVE) RSV (PCR) NEGATIVE (NEGATIVE) SARS-CoV-2 (PCR) POSITIVE A (NEGATIVE) 02/23/23 02/23/23 02/24/23 Range/Units 21:25 23:30 04:17 WBC 4.5 (4.0-10.5) x10^3/uL RBC 4.10 (4.1-5.4) x10^6/uL Hgb 12.3 (12.0-16.0) g/dL Hct 35.6 (35-47) % MCV 86.8 (78-100) fL MCH 30.0 (26-32) pg MCHC 34.6 (32-36) g/dL RDW 11.5 (11.5-14.0) % Plt Count 227 (150-450) x10^3/uL MPV 9.5 (7.5-11.0) fL Gran % 44.3 (36.0-66.0) % Immature Gran % (Auto) 0.2 (0.00-0.4) % Nucleat RBC Rel Count 0.0 (0.00-0.1) % Eos # (Auto) 0.01 (0-0.5) x10^3/uL Immature Gran # (Auto) 0.01 (0.00-0.03) x10^3u/L Absolute Lymphs (auto) 1.89 (1.0-4.6) x10^3/uL Absolute Monos (auto) 0.57 (0.0-1.3) x10^3/uL Absolute Nucleated RBC 0.00 (0.00-0.01) x10^3u/L Lymphocytes % 42.5 (24.0-44.0) % Monocytes % 12.8 H (0.0-12.0) % Eosinophils % 0.2 (0.00-5.0) % Basophils % 0.0 (0.0-0.4) % Absolute Granulocytes 1.97 (1.4-6.9) x10^3/uL Basophils # 0 (0-0.4) x10^3/uL Sodium 126 L 127 L (137-145) mmol/L Potassium 4.1 4.0 (3.5-5.1) mmol/L Chloride 93 L 95 L (98-107) mmol/L Carbon Dioxide 21 L 22 (22-30) mmol/L Anion Gap 15.8 H 13.1 (5-15) MEQ/L BUN 9 8 (7-17) mg/dL Creatinine 0.72 0.70 (0.52-1.04) mg/dL Estimated GFR > 60.0 > 60.0 ML/MIN Glucose 109 H 114 H (74-106) mg/dL Lactic Acid (0.4-2.0) Calcium 8.5 8.3 L (8.4-10.2) mg/dL Total Bilirubin (0.2-1.3) mg/dL AST (14-36) U/L ALT (0-35) U/L Alkaline Phosphatase (38-126) U/L Troponin I (0.000-0.034) ng/mL Serum Total Protein (6.3-8.2) g/dL Albumin (3.5-5.0) g/dL Triglycerides 103 (30-150) mg/dL Cholesterol 178 (50-200) mg/dL LDL Cholesterol 119 H (30-100) mg/dL HDL Cholesterol 36 L (40-60) mg/dL Heart Disease Risk Ratio 4.9 Amylase (30-110) U/L Lipase (23-300) U/L TSH 3rd Generation 0.724 (0.47-4.68) mIU/L Urine Color (Yellow) Urine Appearance (Clear) Urine pH (4.6-8.0) Ur Specific Fiatt (1.005-1.030) Urine Protein (Negative) Urine Glucose (UA) (Negative) mg/dL Urine Ketones (Negative) Urine Blood (Negative) Urine Nitrite (Negative) Urine Bilirubin (Negative) Urine Urobilinogen (0.2) mg/dL Ur Leukocyte Esterase (Negative) U Hyaline Cast (Auto) (0-2) /LPF Urine Microscopic RBC (0-5) /HPF Urine Microscopic WBC (0-5) /HPF Ur Epithelial Cells (None Seen) /HPF Urine Bacteria (None Seen) /HPF Urine Culture Reflexed (NO) Influenza Type A Ag (NEGATIVE) Influenza Type B Ag (NEGATIVE) RSV (PCR) (NEGATIVE) SARS-CoV-2 (PCR) (NEGATIVE) 02/24/23 Range/Units 04:17 WBC (4.0-10.5) x10^3/uL RBC (4.1-5.4) x10^6/uL Hgb (12.0-16.0) g/dL Hct (35-47) % MCV (78-100) fL MCH (26-32) pg MCHC (32-36) g/dL RDW (11.5-14.0) % Plt Count (150-450) x10^3/uL MPV (7.5-11.0) fL Gran % (36.0-66.0) % Immature Gran % (Auto) (0.00-0.4) % Nucleat RBC Rel Count (0.00-0.1) % Eos # (Auto) (0-0.5) x10^3/uL Immature Gran # (Auto) (0.00-0.03) x10^3u/L Absolute Lymphs (auto) (1.0-4.6) x10^3/uL Absolute Monos (auto) (0.0-1.3) x10^3/uL Absolute Nucleated RBC (0.00-0.01) x10^3u/L Lymphocytes % (24.0-44.0) % Monocytes % (0.0-12.0) % Eosinophils % (0.00-5.0) % Basophils % (0.0-0.4) % Absolute Granulocytes (1.4-6.9) x10^3/uL Basophils # (0-0.4) x10^3/uL Sodium 128 L (137-145) mmol/L Potassium 3.6 (3.5-5.1) mmol/L Chloride 97 L (98-107) mmol/L Carbon Dioxide 21 L (22-30) mmol/L Anion Gap 13.9 (5-15) MEQ/L BUN 7 (7-17) mg/dL Creatinine 0.74 (0.52-1.04) mg/dL Estimated GFR > 60.0 ML/MIN Glucose 110 H (74-106) mg/dL Lactic Acid (0.4-2.0) Calcium 8.2 L (8.4-10.2) mg/dL Total Bilirubin 0.60 (0.2-1.3) mg/dL AST 30 (14-36) U/L ALT 19 (0-35) U/L Alkaline Phosphatase 64 (38-126) U/L Troponin I (0.000-0.034) ng/mL Serum Total Protein 6.1 L (6.3-8.2) g/dL Albumin 3.5 (3.5-5.0) g/dL Triglycerides (30-150) mg/dL Cholesterol (50-200) mg/dL LDL Cholesterol (30-100) mg/dL HDL Cholesterol (40-60) mg/dL Heart Disease Risk Ratio Amylase (30-110) U/L Lipase (23-300) U/L TSH 3rd Generation (0.47-4.68) mIU/L Urine Color (Yellow) Urine Appearance (Clear) Urine pH (4.6-8.0) Ur Specific Fiatt (1.005-1.030) Urine Protein (Negative) Urine Glucose (UA) (Negative) mg/dL Urine Ketones (Negative) Urine Blood (Negative) Urine Nitrite (Negative) Urine Bilirubin (Negative) Urine Urobilinogen (0.2) mg/dL Ur Leukocyte Esterase (Negative) U Hyaline Cast (Auto) (0-2) /LPF Urine Microscopic RBC (0-5) /HPF Urine Microscopic WBC (0-5) /HPF Ur Epithelial Cells (None Seen) /HPF Urine Bacteria (None Seen) /HPF Urine Culture Reflexed (NO) Influenza Type A Ag (NEGATIVE) Influenza Type B Ag (NEGATIVE) RSV (PCR) (NEGATIVE) SARS-CoV-2 (PCR) (NEGATIVE) Radiology Exams: Radiology Procedures Category Date Time Status OBSTR/ACUTE ABDOMEN SERIES Stat Exams 02/23/23 14:41 Completed Assessment/Plan (1) COVID Current Visit: Yes Status: Acute Assessment & Plan: -Continue to monitor, passed the window for paxlovid/remdesivir -CXR pending -Isolation -Supplemental oxygen as need for goal of >92% Code(s): U07.1 - COVID-19 (2) Hyponatremia Current Visit: Yes Status: Acute Assessment & Plan: -Most likely due to hypovolemia/use of hctz -Continue NS@100ml/hr -BMP q4h -TSH, lipid panel -Tele -Hold HCTZ 02/24: -Improved at 128, will continue IVF Code(s): E87.1 - HYPO-OSMOLALITY AND HYPONATREMIA (3) Urinary tract infection Current Visit: Yes Status: Acute Assessment & Plan: -Rocephin empirically, follow culture 02/24: -Ucult neg to date, will continue rocephin until final results Code(s): N39.0 - URINARY TRACT INFECTION, SITE NOT SPECIFIED (4) Hypertension Current Visit: Yes Status: Acute Assessment & Plan: -stable, will continue to monitor for now, resume amlodipine Code(s): I10 - ESSENTIAL (PRIMARY) HYPERTENSION
[2023-02-24 14:02] LABS: ANION GAP 13.2 MEQ/L (5-15); BLOOD UREA NITROGEN 8 mg/dL (7-17); CHLORIDE 101 mmol/L (98-107); Carbon Dioxide 22 mmol/L (22-30); Creatinine 1 0.78 mg/dL (0.52-1.04); EST GLOMERULAR FILTRATION RATE > 60.0 ML/MIN; Glucose 112 mg/dL (74-106); Potassium 3.5 mmol/L (3.5-5.1); SODIUM 133 mmol/L (137-145)
[2023-02-25 00:17] VITALS: RESP 16
[2023-02-25 06:10] LABS: ANION GAP 11.9 MEQ/L (5-15); BLOOD UREA NITROGEN 8 mg/dL (7-17); CHLORIDE 105 mmol/L (98-107); Calcium 7.9 mg/dL (8.4-10.2); Carbon Dioxide 20 mmol/L (22-30); Creatinine 1 0.82 mg/dL (0.52-1.04); EST GLOMERULAR FILTRATION RATE > 60.0 ML/MIN; Glucose 98 mg/dL (74-106); Potassium 3.6 mmol/L (3.5-5.1); SODIUM 134 mmol/L (137-145)
--- NOTE | 2023-02-25 07:39 | PCM.DS ---
Discharge Summary Date of Admission: 02/23/23 17:18 Date of Discharge: 02/25/23 Admitting Physician: TREV HOOD MD Primary Care Provider: JERRY OBRIEN Allergies Allergies No Known Drug Allergies Allergy (Verified 02/23/23 14:28) Hospital Summary - Hospital Course Hospital Course: is a 87 year old female with a pmhx of HTN presenting with c/o fatigue, diarrhea (x 1 episode) and nausea admitted for COVID, hyponatremia, and UTI currently being treated with rocephin pending cultures and IVF. She is at her baseline of RA with spo2 @ 98%. CT of the abdomen findings: Nonacute nonobstructed abdomen. Nonacute one view chest.Incidental chronic bony findings. Laboratory findings initially remarkable for sodium level of 123, chlo ride at 89, carbon dioxide at 20, Gap 17.5, u/a suspicious for infection, and positive COVID. Patient endorses improvement of symptoms. Denies nausea and diarrhea. Remains afebrile. Sodium levels have improved to today now at her baseline 134. Discussed that she would need to follow a 2L fluid restriction on discharge. Her previous PCP has retired, but she is to follow with Dr. Pandya. Urine culture is showing no growth no need for continued antibiotic. Patient to discharge home, will need BMP Wednesday with close follow up with PCP. Will also hold HCTZ for now until follow up with PCP for possible alternative. - Vitals & Intake/Output Vital Signs: Vital Signs Temperature 97.5 F 02/25/23 05:00 Pulse Rate 66 02/25/23 05:00 Respiratory Rate 16 02/25/23 05:54 Blood Pressure 141/66 02/25/23 05:00 O2 Sat by Pulse Oximetry 94 L 02/25/23 05:00 Intake & Output: Intake & Output 02/22/23 02/23/23 02/24/23 02/25/23 11:59 11:59 11:59 11:59 Intake Total 1706 2965 Output Total 1100 1000 Balance 606 1965 Weight 69 kg - Lab Result Diagrams: 02/24/23 04:17 02/25/23 04:48 Lab Results-Last 24 Hrs: Lab Results-Last 24 Hours 02/24/23 02/25/23 Range/Units 13:30 04:48 Sodium 133 L 134 L (137-145) mmol/L Potassium 3.5 3.6 (3.5-5.1) mmol/L Chloride 101 105 (98-107) mmol/L Carbon Dioxide 22 20 L (22-30) mmol/L Anion Gap 13.2 11.9 (5-15) MEQ/L BUN 8 8 (7-17) mg/dL Creatinine 0.78 0.82 (0.52-1.04) mg/dL Estimated GFR > 60.0 > 60.0 ML/MIN Glucose 112 H 98 (74-106) mg/dL Calcium 8.0 L 7.9 L (8.4-10.2) mg/dL Micro Results-Entire Visit: Microbiology 02/23/23 15:35 Blood Culture - Preliminary Blood 02/23/23 15:00 Blood Culture - Preliminary Blood 02/23/23 16:00 Urine Culture - Preliminary Clean Catch Midstream NO GROWTH TO DATE - Radiology Exams Ordered Rad Exams-Entire Visit: Radiology Procedures Category Date Time Status OBSTR/ACUTE ABDOMEN SERIES Stat Exams 02/23/23 14:41 Completed Discharge Exam General Appearance: no apparent distress Neurologic Exam: alert, oriented x 3, cooperative Eye Exam: PERRL Ears, Nose, Throat Exam: normal ENT inspection Neck Exam: normal inspection Respiratory Exam: normal breath sounds, lungs clear Cardiovascular Exam: regular rate/rhythm, normal heart sounds Gastrointestinal/Abdomen Exam: soft, normal bowel sounds Extremity Exam: normal inspection Skin Exam: normal color Final Diagnosis/Problem List - Final Discharge Diagnosis/Problem (1) Hyponatremia Current Visit: Yes Status: Resolved Code(s): E87.1 - HYPO-OSMOLALITY AND HYPONATREMIA (2) COVID Current Visit: Yes Status: Acute Code(s): U07.1 - COVID-19 (3) Urinary tract infection Current Visit: Yes Status: Resolved Code(s): N39.0 - URINARY TRACT INFECTION, SITE NOT SPECIFIED (4) Hypertension Current Visit: Yes Status: Chronic Code(s): I10 - ESSENTIAL (PRIMARY) HYPERTENSION - Discharge Condition: Serious Prescriptions: Continue Amlodipine Besylate [Norvasc] 1 tab PO DAILY Potassium Chloride [Klor-Con M20] 1 tab PO BID Discontinued Hydrochlorothiazide 25 mg [hydroDIURIL 25 MG] 1 tab PO DAILY Outpatient Orders: BMP Time Frame: 3 Days, Facility: [facility], Location: LABORATORY Instructions: COVID-19 (DC) Follow up with: JOSE ANGEL PANDYA DO [ACTIVE STAFF] - 03/01/23 10:30 am Forms: Discharge Instructions
[2023-02-25] MEDS: NORVASC 5 MG PO SCH (09:38)
[2023-02-25] MEDS: Klor Con PO SCH (09:38)
[2023-02-25 09:44] VITALS: BP 141/73; TEMP 97.3
[2023-02-25 11:42] VITALS: PULSE 84; O2SAT 94
== END 2023-02-25 13:30 | disposition home or self-care (01) ==
LOC: ED 14:20 → MED SURG 17:18
PROVIDERS: ADMIT Internal Medicine; ATTEND Internal Medicine
DX: E87.1 Hypo-osmolality and hyponatremia (principal); U07.1 COVID-19; N39.0 Urinary tract infection, site not specified; I10 Essential (primary) hypertension; Z79.899 Other long term (current) drug therapy; Z20.828 Contact with and (suspected) exposure to other viral communicable diseases
CPT/HCPCS: 0241U; 36000; 36415; 74022; 80048; 80053; 80061; 81001; 82150; 83605; 83690; 83721; 84443; 84484; 85025; 87040; 87086; 93005; 93268; 96365; 96374; 96375; 99284; G0378; Q3014; J0696; J1650; J2405; A9270-GY

== ENCOUNTER 2024-09-12 11:08 | Emergency (ER) | payer MEDICARE ==
[2024-09-12 11:26] VITALS: RESP 18; TEMP 96.9
--- NOTE | 2024-09-12 11:38 | ERPHSYRPT ---
- History of Present Illness Time Seen by Provider: 09/12/24 11:15 Source: patient Exam Limitations: no limitations Patient Subjective Stated Complaint: pt states she was in the bathroom and fell. pt states that she put her hand down to catch herself Triage Nursing Assessment: pt came into the er via wheelchair; pt transfer to cot per self; pt is axo x4; c/o rt wrist pain; pt states 6/10 pain to rt wrist pain; swelling, bruising present to rt wrist; good ROM to rt fingers, hand; limited ROM to rt wrist; strong rt radial pulse; good cap refill to rt wrist; skin PDW; no respiratory distress present; hypertensive Physician History: 89-year-old female presents to our ED for evaluation of pain to her right wrist. Patient states she was in her bathroom this morning. Patient slipped and fell. Patient fell on her outstretched right arm. Injury occurred just prior to arrival. Patient declined pain medication. Patient states the fall was mechanical and not associated with any neuro or cardiovascular symptomology. No associated chest pain or shortness of breath. No nausea vomiting or diaphoresis. No numbness tingling or weakness. No BHT or LOC. No neck pain. Cervical spine cleared clinically. No other injuries reported. Patient describes pain at her right wrist. Patient is right-hand dominant. Pain described as an ache that is localized. Pain worse with movement and palpation. Pain improved with rest. Patient otherwise feels well. She voices no other complaints or concerns at this time. Portions of this note were created with voice recognition technology. There may be grammatical, spelling, punctuation or sound alike errors Occurred: just prior to arrival Method of Injury: fell Quality: constant Severity of Pain-Max: moderate Severity of Pain-Current: mild Extremities Pain Location: wrist: right Modifying Factors: Improves With: movement Associated Symptoms: none Allergies/Adverse Reactions: No Known Drug Allergies Allergy (Verified 09/12/24 11:15) Home Medications: Amlodipine Besylate [Norvasc] 1 tab PO DAILY 02/23/23 [History] Potassium Chloride [Klor-Con M20] 1 tab PO BID 02/23/23 [History] Pravastatin Sodium 20 mg PO DAILY 09/12/24 [History] Propranolol HCl 10 mg PO DAILY 09/12/24 [History] Valsartan 320 mg PO DAILY 09/12/24 [History] Hx Tetanus, Diphtheria Vaccination/Date Given: No Hx Influenza Vaccination/Date Given: Yes Hx Pneumococcal Vaccination/Date Given: Yes Travel Risk - International Travel Have you traveled outside of the country in past 3 weeks: No - Emerging Infectious Disease Are you exhibiting symptoms associated with any current EIDs: Yes Symptoms: Cough: New Onset Comment: nausea - Review of Systems Constitutional: No Symptoms, No Fever, No Chills Eyes: No Symptoms Ears, Nose, & Throat: No Symptoms Respiratory: No Symptoms, No Cough, No Dyspnea Cardiac: No Symptoms, No Chest Pain, No Edema, No Syncope Abdominal/Gastrointestinal: No Symptoms, No Abdominal Pain, No Nausea, No Vo miting, No Diarrhea Genitourinary Symptoms: No Symptoms, No Dysuria Musculoskeletal: No Symptoms, No Back Pain, No Neck Pain Skin: No Symptoms, No Rash Neurological: No Symptoms, No Dizziness, No Focal Weakness, No Sensory Changes Psychological: No Symptoms Endocrine: No Symptoms Hematologic/Lymphatic: No Symptoms Immunological/Allergic: No Symptoms All Other Systems: Reviewed and Negative - Past Medical History Pertinent Past Medical History: Yes Neurological History: No Pertinent History ENT History: No Pertinent History Cardiac History: High Cholesterol, Hypertension Respiratory History: No Pertinent History Endocrine Medical History: No Pertinent History Musculoskeletal History: No Pertinent History GI Medical History: No Pertinent History History: No Pertinent History Psycho-Social History: No Pertinent History Female Reproductive Disorders: No Pertinent History - Past Surgical History Past Surgical History: Yes Neuro Surgical History: No Pertinent History Cardiac: No Pertinent History Respiratory: No Pertinent History Gastrointestinal: No Pertinent History Genitourinary: No Pertinent History Musculoskeletal: No Pertinent History Female Surgical History: Hysterectomy - Social History Smoking Status: Never smoker Exposure to second hand smoke: No Drug Use: none - Social Determinants of Health Will the patient participate in the screening: Yes Do you worry about a steady place to live?: No Do you have any problems with any of the following?: No known problems In the past 12 months,have you had to go without utilities?: No Transportation Issues: No Has anyone in your support network made you feel unsafe?: No Have you or anyone in your house had to go w/o enough food: No - Nursing Vital Signs Nursing Vital Signs: Initial Vital Signs Pulse Rate 75 09/12/24 11:15 Blood Pressure 172/77 09/12/24 11:15 O2 Sat by Pulse Oximetry 96 03/11/25 11:15 Pain Scale Pain Intensity 6 - Physical Exam General Appearance: no apparent distress, alert Eyes, Ears, Nose, Throat Exam: moist mucous membranes Neck Exam: normal inspection, full range of motion Cardiovascular/Respiratory Exam: chest non-tender, normal breath sounds, regular rate/rhythm, no respiratory distress Abdominal Exam: non-tender, No guarding Back Exam: normal inspection, No vertebral tenderness Shoulder Exam: normal inspection, non-tender, no evidence of injury, normal ROM Elbow/Forearm Exam: normal inspection, non-tender, no evidence of injury, normal ROM Wrist Exam: limited ROM, pain (The involved right upper extremity is neurovascular intact distally compartments are soft cap refill less than 2 seconds.), soft tissue tenderness, swelling Hand Exam: normal inspection, non-tender, no evidence of injury, normal ROM Neuro/Tendon Exam: normal sensation, normal motor functions Mental Status Exam: alert, oriented x 3, cooperative Skin Exam: normal color, warm, dry SpO2 Interpretation: normal SpO2: 95 O2 Delivery: Room Air - Course Nursing assessment & vital signs reviewed: Yes - Radiology Exams Wrist X-ray Interpretation: Teleradiologist Report (Impacted displaced intra-articular fracture) Ordered Tests: Active Orders 24 hr Category Date Time Status FOREARM Stat Exams 09/12/24 11:32 Completed WRIST (MIN 3 VIEWS) Stat Exams 09/12/24 11:32 Completed - Progress Progress: improved Progress Note: 89-year-old female presents to our ED for evaluation of right wrist pain status post fall. Patient declined pain medication. Physical exam reveals a swollen right wrist. No open or draining lesions. The involved extremities neurovascular intact distally compartments are soft cap refill less than 2 seconds. X-ray reveals a right distal radius intra-articular fracture. Patient placed in a sugar-tong splint and in a right upper extremity sling. Patient referred to the orthopedic clinic for follow-up. Patient declined pain medication. Son at bedside. Plan of care discussed. They agree to follow-up with the orthopedic clinic tomorrow as planned. They voiced no other complaints or concerns at this time. No other injuries reported. Portions of this note were created with voice recognition technology. There may be grammatical, spelling, punctuation or sound alike errors Complexity of problem addressed is moderate acute complicated. No critical care time. Complex of data reviewed and analyzed is moderate. Test ordered test reviewed results analyzed and correlated clinically with history and physical exam. Risk of complication and or risk of morbidity/mortality of patient management is low. Vital stable. Time spent to discharge patient is approximately 15 minutes. Plan of care established for shared decision making. No social determinants of health present to impede follow-up. Portions of this note were created with voice recognition technology. There may be grammatical, spelling, punctuation or sound alike errors 09/12/24 12:26 Counseled pt/family regarding: diagnosis, need for follow-up, rad results - Departure Departure Disposition: Home Clinical Impression: Fall, Wrist fracture, right Condition: Stable Critical Care Time: No Referrals: JOSE ANGEL PANDYA, [Primary Care Provider] - Follow up/PCP as directed Additional Instructions: Discharge/Care Plan RICK JAIMES was seen on 09/12/24 in the Emergency Room. The patient was counseled regarding Diagnosis,Lab results, Imaging studies, need for follow up and when to return to the Emergency Room. Prescriptions given: Discharge Note I have spoken with the patient and/or caregivers. I have explained the patient's condition, diagnosis and treatment plan based on the information available to me at this time. I have answered the patient's and/or caregiver's questions and addressed any concerns. The patient and/or caregivers have as good understanding of the patient's diagnosis, condition and treatment plan as can be expected at this point. The vital signs have been stable. The patient's condition is stable and appropriate for discharge from the emergency department. The patient will pursue further outpatient evaluation with the primary care physician or other designated or consulting physician as outlined in the discharge instructions. The patient and/or caregivers are agreeable to this plan of care and follow-up instructions have been explained in detail. The patient and/or caregivers have received these instruction. The patient/and or caregivers are aware that any significant change in condition or worsening of symptoms should prompt an immediate return to this or the closest emergency department or call 911. Outpatient Orders: Ortho Referral Time Frame: 1 Day, Facility: [facility]. Hosp, Location: [facility]
--- NOTE | 2024-09-12 12:08 | XRAY ---
Indication: Pain following fall. Comparison: None 2 view right forearm demonstrates impacted comminuted fracture distal radius with intra-articular extension and soft tissue swelling. 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
--- NOTE | 2024-09-12 12:10 | XRAY ---
Indication: Pain following fall. Comparison: None 3 view right wrist demonstrates impacted comminuted and slightly displaced fracture distal radius with intra-articular extension and soft tissue swelling. 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
[2024-09-12 12:12] VITALS: PULSE 76
[2024-09-12 12:35] VITALS: BP 151/68; O2SAT 97
== END 2024-09-12 12:50 | disposition home or self-care (01) ==
LOC: ED 11:08
DX: S52.571A Other intraarticular fracture of lower end of right radius, initial encounter for closed fracture (principal); W01.0XXA Fall on same level from slipping, tripping and stumbling without subsequent striking against object, initial encounter; Y92.002 Bathroom of unspecified non-institutional (private) residence as the place of occurrence of the external cause; E78.5 Hyperlipidemia, unspecified; I10 Essential (primary) hypertension; Z79.899 Other long term (current) drug therapy
CPT/HCPCS: 73090; 73110; 99282; 99283